=== PATIENT | female | born 1990 | race Caucasian/White ===

== ENCOUNTER → 2017-12-31 | Outpatient (REF) | payer OTHER | LOC: M LAB REF 17:55 | DX: Z12.4 Encounter for screening for malignant neoplasm of cervix (principal) ==

== ENCOUNTER → 2018-02-11 | Outpatient (REF) | payer OTHER | LOC: M LAB REF 17:09 | DX: R30.0 Dysuria (principal) ==

== ENCOUNTER → 2018-06-05 | Outpatient (CLI) | payer OTHER ==
[2018-06-05 13:44] LABS: BASO % 0.5 % (0.0-1.0); EOS # 0.1 10^3/uL (0.0-0.50); EOS % 2.1 % (0.0-3.0); HEMATOCRIT 39.7 % (36.0-47.0); HEMOGLOBIN 13.1 g/dl (12.0-15.5); IMMATURE GRANULOCYTE % 0.2 % (0-3.0); LYMPH # 1.4 10^3/uL (1.5-6.5); LYMPH % 33.3 % (24.0-44.0); MEAN CORPUSCULAR HEMOGLOBIN 30.3 pg (27.0-33.0); MEAN CORPUSCULAR VOLUME 91.7 fl (80.0-96.0); MONO # 0.5 10^3/uL (0.0-0.8); NEUTROPHILS # 2.3 10^3/uL (1.8-7.7); NEUTROPHILS % 52.9 % (36.0-66.0); PLATELET COUNT, AUTOMATED 232 10^3/uL (150-450); RED BLOOD COUNT 4.33 10^6/uL (4.00-5.40); RED CELL DISTRIBUTION WIDTH 12.2 % (11.5-14.5); WHITE BLOOD COUNT 4.3 10^3/uL (4.0-10.0)
[2018-06-05 15:39] LABS: FREE T4 0.74 NG/DL (0.76-1.46)
== END ==
LOC: M SMT 10:40
DX: Z13.29 Encounter for screening for other suspected endocrine disorder (principal); Z13.0 Encounter for screening for diseases of the blood and blood-forming organs and certain disorders involving the immune mechanism
CPT/HCPCS: 84443

== ENCOUNTER → 2019-05-11 | Outpatient (REF) | payer OTHER ==
[2019-05-11 20:33] LABS: CHLAMYDIA DNA AMPLIFICATION NEGATIVE (NEGATIVE); GC DNA AMPLIFICATION NEGATIVE (NEGATIVE)
[2019-05-14 14:07] LABS: HPV HYBRID CAPTURE II Negative (Negative)
== END ==
LOC: M LAB REF 18:36
PROVIDERS: ATTEND Specialist
DX: Z12.4 Encounter for screening for malignant neoplasm of cervix (principal); Z11.3 Encounter for screening for infections with a predominantly sexual mode of transmission
CPT/HCPCS: 87491; 87591; 87624; G0123

== ENCOUNTER → 2019-09-18 | Outpatient (CLI) | payer OTHER ==
[2019-09-18 08:16] LABS: BASO % 0.4 % (0.0-1.0); EOS # 0.1 10^3/uL (0.0-0.5); EOS % 2.3 % (0.0-3.0); HEMATOCRIT 37.3 % (36.0-47.0); HEMOGLOBIN 12.7 g/dl (12.0-15.5); LYMPH # 2.1 10^3/uL (1.5-5.0); LYMPH % 39.1 % (24.0-44.0); MEAN CORPUSCULAR HEMOGLOBIN 30.8 pg (27.0-33.0); MEAN CORPUSCULAR VOLUME 90.5 fl (80.0-96.0); MONO # 0.5 10^3/uL (0.0-0.8); MONO % 9.7 % (0.0-5.0); NEUTROPHILS # 2.5 10^3/uL (1.5-8.5); NEUTROPHILS % 48.3 % (36.0-66.0); PLATELET COUNT, AUTOMATED 256 10^3/uL (150-450); RED BLOOD COUNT 4.12 10^6/uL (4.00-5.40); WHITE BLOOD COUNT 5.2 10^3/uL (4.0-10.0)
[2019-09-18 08:50] LABS: ALBUMIN 4.3 GM/DL (3.2-5.2); ALT/SGPT 30 U/L (12-78); BILIRUBIN,TOTAL 0.6 MG/DL (0.2-1.0); BLOOD UREA NITROGEN 13 MG/DL (7-18); CALCIUM LEVEL 9.7 MG/DL (8.5-10.1); CARBON DIOXIDE LEVEL 28 MEQ/L (21-32); CHLORIDE LEVEL 106 MEQ/L (98-107); CREATININE FOR GFR 0.72 MG/DL (0.55-1.30); FREE T4 0.77 NG/DL (0.76-1.46); GLOMERULAR FILTRATION RATE > 60.0 (>60); GLUCOSE, FASTING 87 MG/DL (70-100); POTASSIUM SERUM 4.2 MEQ/L (3.5-5.1); SODIUM LEVEL 139 MEQ/L (136-145); TOTAL PROTEIN 7.9 GM/DL (6.4-8.2)
== END ==
LOC: M LAB 07:38
PROVIDERS: ATTEND Family Medicine
DX: Z13.79 Encounter for other screening for genetic and chromosomal anomalies (principal)

== ENCOUNTER → 2019-10-01 | Outpatient (CLI) | payer OTHER ==
--- NOTE | 2019-10-01 09:55 | REP ---
Clinical: Infertility. Technique: Transvaginal examination. Findings: Normal anteverted uterus measures 8.1 x 4.0 x 5.2 cm. The endometrial complex demonstrates normal trilaminar appearance and measures 8.3 mm thickness. Small amount of pelvic fluid is appreciated. Right ovary measures 3.9 x 2.4 x 2.2 cm and includes 11.4 mm and 15.8 mm follicles along with approximately 20 sub centimeter follicles measuring between 2.6 and 8.4 mm. Left ovary measures 3.1 x 2.2 x 2.6 cm and includes 10.3 mm, 10.3 mm, and 16.4 mm follicles along with approximately 19 sub centimeter follicles measuring between 2.4 and 8.1 mm Impression: Bilateral ovarian follicles as noted above. Electronically Signed by Guillermo Mckeon MD 10/01/2019 09:46 A
[2019-10-01 10:14] LABS: ESTRADIOL 49.1 PG/ML; LUTEINIZING HORMONE 14.4 mIU/mL; PROGESTERONE 0.29 NG/ML
== END ==
LOC: M LAB 08:42
PROVIDERS: ATTEND Obstetrics & Gynecology Reproductive Endocrinology
DX: E28.9 Ovarian dysfunction, unspecified (principal)

== ENCOUNTER → 2019-10-12 | Outpatient (CLI) | payer OTHER ==
[2019-10-12 09:05] LABS: THYROID STIMULATING HORMONE 1.72 uIU/ML (0.358-3.740)
[2019-10-12 10:18] LABS: PROGESTERONE 33.13 NG/ML
[2019-10-12 10:19] LABS: ESTRADIOL 161.5 PG/ML
== END ==
LOC: M LAB 07:36
PROVIDERS: ATTEND Obstetrics & Gynecology Reproductive Endocrinology
DX: E28.9 Ovarian dysfunction, unspecified (principal)

== ENCOUNTER → 2019-10-19 | Outpatient (CLI) | payer OTHER ==
[2019-10-19 17:06] LABS: HCG, SERUM QUANTITATIVE < 1.0 MIU/ML
[2019-10-19 17:15] LABS: ESTRADIOL 21.1 PG/ML
== END ==
LOC: M LAB 15:55
PROVIDERS: ATTEND Obstetrics & Gynecology Reproductive Endocrinology
DX: E28.9 Ovarian dysfunction, unspecified (principal)

== ENCOUNTER → 2019-11-25 | Outpatient (CLI) | payer OTHER ==
[2019-11-25 07:21] LABS: HCG, SERUM QUANTITATIVE < 1.0 MIU/ML
--- NOTE | 2019-11-25 07:53 | REP ---
Pelvic ultrasound for follicle assessment: The study is performed with endovaginal ultrasound imaging. Right ovary: There are no follicles that are greater than 10 mm. There are 14 follicles that measure 3.5 - 7.8 mm. Right ovary measures 3.5 x 1.71 point 6 cm and is normal size. Left ovary: There are no follicles that are greater than 10 mm. There are 11 follicles that measure 2.9 - 7.1 mm. The left ovary measures 2.9 x 2.0 x 2.2 cm. And is normal size. The uterus is anteverted and normal size measuring 9.2 x 3.8 x 5.2 cm. The endometrial stripe measures 3.5 mm and has a trilaminar appearance. There is a trace of free fluid in the cul-de-sac. Electronically Signed by Sin Horn MD 11/25/2019 07:45 A
[2019-11-25 09:50] LABS: PROGESTERONE 0.45 NG/ML
[2019-11-25 09:51] LABS: ESTRADIOL 30.7 PG/ML; FOLLICLE STIMULATING HORMONE 5.3 mIU/mL; LUTEINIZING HORMONE 5.4 mIU/mL
== END ==
LOC: M LAB 06:21
PROVIDERS: ATTEND Obstetrics & Gynecology Reproductive Endocrinology
DX: N83.01 Follicular cyst of right ovary (principal); N83.02 Follicular cyst of left ovary; N85.5 Inversion of uterus

== ENCOUNTER → 2019-12-02 | Outpatient (CLI) | payer OTHER ==
--- NOTE | 2019-12-02 08:00 | REPVR ---
PROCEDURE INFORMATION: Exam: US Pelvis, Transvaginal Exam date and time: 12/02/2019 6:49 AM Age: 29 years old Clinical indication: Screening exam; Follicle study; Additional info: Ovarian dysfunction TECHNIQUE: Imaging protocol: Real-time transvaginal pelvic ultrasound with image documentation. Transvaginal imaging was used for better evaluation of the endometrium and adnexa. COMPARISON: Transvaginal NON- US 11/25/2019 7:26 AM FINDINGS: Uterus/cervix: Measures 8.7 cm long by 3.9 cm AP by 4.6 cm transversely. Homogeneous echotexture. Endometrium measures 0.5 cm AP which corresponds with the proliferative phase of the menstrual cycle. No endometrial fluid. Right adnexa: Right ovary measures 3.9 cm x 3 cm by 3.5 cm. Normal echotexture. There are 12 follicles in the range of 0.23-0.85 cm. There are 3 follicles that measure greater than 1 cm (largest measures 1.3 cm x 1.4 cm). Left adnexa: Left ovary measures 2.6 cm x 4.2 cm x 3 cm. Normal echotexture.There are 12 follicles in the range of 0.39-0.87. There are two follicles that measure greater than 1 cm (largest measures 1.1 cm x 0.9 cm). Free fluid: None. IMPRESSION: Polycystic ovaries, as described. Electronically signed by: Indu Kline On 12/02/2019 08:00:29 AM
[2019-12-02 12:15] LABS: ESTRADIOL 46.8 PG/ML; LUTEINIZING HORMONE 8.9 mIU/mL; PROGESTERONE 0.21 NG/ML
== END ==
LOC: M RAD 06:09
PROVIDERS: ATTEND Obstetrics & Gynecology Reproductive Endocrinology
DX: E28.9 Ovarian dysfunction, unspecified (principal)

== ENCOUNTER → 2019-12-04 | Outpatient (CLI) | payer OTHER ==
--- NOTE | 2019-12-04 09:10 | REP ---
Ultrasound, endovaginal imaging for ovarian follicle analysis: Right ovary: The right ovary measures 3.4-0.3 x 2.7 cm and is normal size. There are three follicles greater than 10 millimeters as follows: 15 x 12 mm, 13 x 14 mm and 12 x 9 mm. In addition there are seven follicles measuring two - 5 mm. Left ovary: Left ovary measures 3.6 x 2.4 x 2.9 cm and is normal size. There are three follicles greater than 10 mm as follows: 16 x 10 mm, 10 x 7 mm and 11 x 6 mm. Additionally, there are 16 follicles measuring two - 9 mm. The uterus is anteverted and normal size measuring 9.6 x 4.2 x 4.5 cm. The endometrium is not thickened measuring 6.7 mm. The endometrium has a trilaminar appearance. Electronically Signed by Sin Horn MD 12/04/2019 09:00 A
[2019-12-04 11:25] LABS: ESTRADIOL 122.1 PG/ML; LUTEINIZING HORMONE 4.7 mIU/mL; PROGESTERONE 0.21 NG/ML
== END ==
LOC: M RAD 08:28
PROVIDERS: ATTEND Obstetrics & Gynecology Reproductive Endocrinology
DX: E28.9 Ovarian dysfunction, unspecified (principal)

== ENCOUNTER → 2019-12-07 | Outpatient (CLI) | payer OTHER ==
[2019-12-07 12:05] LABS: LUTEINIZING HORMONE 31.6 mIU/mL; PROGESTERONE 1.45 NG/ML
--- NOTE | 2019-12-07 13:52 | REP ---
Clinical: Infertility. Technique: Transvaginal examination. Comparison: 12/04/2019. Findings: Anteverted uterus measures 9.7 x 4.2 x 4.7 cm. Endometrial complex measures 8 mm thickness. No endocervical or free fluid noted. Right ovary measures 4.1 x 2.8 x 3.6 cm and includes 20 x 12, 22 x 21, and 10 x 7 mm follicles along with four sub centimeter follicles measuring between 4 and 7 mm. Left ovary measures 3.5 x 1.9 x 2.8 cm and includes 18 x 10 mm follicle along with 11 sub centimeter follicles measuring between 2 and 5 mm. Impression: Follicular study as above. Electronically Signed by Guillermo Mckeon MD 12/07/2019 01:44 P
== END ==
LOC: M RAD 06:01
PROVIDERS: ATTEND Obstetrics & Gynecology Reproductive Endocrinology
DX: E28.9 Ovarian dysfunction, unspecified (principal)

== ENCOUNTER → 2019-12-15 | Outpatient (CLI) | payer OTHER ==
[2019-12-15 08:34] LABS: ESTRADIOL 225.6 PG/ML; PROGESTERONE 50.7 NG/ML
== END ==
LOC: M LAB 07:14
PROVIDERS: ATTEND Obstetrics & Gynecology Reproductive Endocrinology
DX: E28.9 Ovarian dysfunction, unspecified (principal)

== ENCOUNTER → 2019-12-22 | Outpatient (CLI) | payer OTHER ==
[2019-12-22 08:29] LABS: HCG, SERUM QUANTITATIVE < 1.0 MIU/ML
[2019-12-22 09:57] LABS: PROGESTERONE 7.97 NG/ML
== END ==
LOC: M LAB 07:09
PROVIDERS: ATTEND Obstetrics & Gynecology Reproductive Endocrinology
DX: Z32.00 Encounter for pregnancy test, result unknown (principal)

== ENCOUNTER → 2019-12-28 | Outpatient (CLI) | payer OTHER ==
--- NOTE | 2019-12-28 07:22 | REPVR ---
PROCEDURE INFORMATION: Exam: US Pelvis, Transvaginal Exam date and time: 12/28/2019 6:45 AM Age: 29 years old Clinical indication: Screening exam; Follicle study; Additional info: Infertility TECHNIQUE: Imaging protocol: Real-time transvaginal pelvic ultrasound with image documentation. Transvaginal imaging was used for better evaluation of the endometrium and adnexa. COMPARISON: Transvaginal NON- US 12/07/2019 1:27 PM FINDINGS: Uterus/cervix: The uterus measures 9.1 x 3.8 x 5.2 cm. It is homogeneous in echotexture, without demonstrated lesion. The endometrium measures 6.4 mm in thickness. Right adnexa: The right ovary measures 3.8 x 2.1 x 2.5 cm. It contains 13 follicles measuring between 3.8 and 9.2 mm. Left adnexa: The left ovary measures 2.7 x 4.2 x 2.4 cm. It contains 7 follicles measuring between 3.2 and 10.0 mm. Free fluid: None. IMPRESSION: Multiple bilateral ovarian follicles as described. Electronically signed by: Vikash Myers On 12/28/2019 07:21:55 AM
[2019-12-28 07:55] LABS: HCG, SERUM QUANTITATIVE < 1.0 MIU/ML
[2019-12-28 09:28] LABS: LUTEINIZING HORMONE 5.3 mIU/mL; PROGESTERONE 0.37 NG/ML
[2019-12-28 09:29] LABS: ESTRADIOL 49.2 PG/ML
== END ==
LOC: M RAD 06:24
PROVIDERS: ATTEND Obstetrics & Gynecology Reproductive Endocrinology
DX: E28.9 Ovarian dysfunction, unspecified (principal)

== ENCOUNTER → 2020-01-04 | Outpatient (CLI) | payer OTHER ==
[2020-01-04 09:34] LABS: LUTEINIZING HORMONE 5.9 mIU/mL; PROGESTERONE 0.23 NG/ML
--- NOTE | 2020-01-04 12:58 | REP ---
Transvaginal pelvic sonography: History: Infertility study. Findings: Uterine dimensions are normal measured at 9.4 x 3.9 x 5.2 cm. Endometrial stripe is 0.6 cm thick. No focal uterine mass is seen. No free fluid. The overall dimensions of the right ovary today are 4.3 x 2.3 x 4.0 cm. The right ovary contains seven follicles measuring greater than a centimeter as follows: 1.1 x 1.2, 1.3 x 0.9, 1.4 x 0.8, 1.3 x 0.6, 1.2 x 0.8, and 1.2 x 0.7 cm. In addition, the right ovary contains 16 follicles ranging in size from 0.2-0.9 cm. The overall dimensions of the left ovary today are 3.8 x 2.3 x 3.0 cm. There are two follicle over a centimeter measured as follows: 1.2 x 1.0 and 1.4 x 0.8 cm. In addition, the left ovary contains 19 follicles measuring between 0.3 and 0.9 cm. Impression: Ovarian follicle study as above. Electronically Signed by Pedro Simpson MD 01/04/2020 12:49 P
== END ==
LOC: M RAD 08:04
PROVIDERS: ATTEND Obstetrics & Gynecology Reproductive Endocrinology
DX: E28.9 Ovarian dysfunction, unspecified (principal)

== ENCOUNTER → 2020-01-06 | Outpatient (CLI) | payer OTHER ==
--- NOTE | 2020-01-06 13:10 | REP ---
Pelvic ultrasound, endovaginal imaging for ovarian follicle assessment: Right ovary: The right ovary measures 3 x 8-0.43 point centimeters and is normal size. There are four follicles greater than 10 mm as follows: 24 x 16 ml, 13 x 6 mm, 10 x 5 mm, 11 x 6 mm. Additionally there are nine follicles measuring 5 - 9 mm. Left ovary: The left ovary measures 3.6 x 3 point 4-5 cm and is normal size. There are two follicles greater than 10 mm as follows: 12 x 7 mm, 16 x 11 mm. Additionally there are eight follicles measuring 3 - 8 mm. The uterus is anteverted and normal size measuring 9.9 x 4.1 x 4.9 cm. The endometrium is not thickened measuring 10.2 ml. There is a trace of free fluid in the endometrial canal. There are a few tiny echogenic foci along the margins of the endometrium , likely endometrial calcifications. Electronically Signed by Sin Horn MD 01/06/2020 01:02 P
== END ==
LOC: M RAD 09:41
PROVIDERS: ATTEND Obstetrics & Gynecology Reproductive Endocrinology
DX: E28.9 Ovarian dysfunction, unspecified (principal)

== ENCOUNTER → 2020-01-06 | Outpatient (CLI) | payer OTHER ==
[2020-01-06 11:42] LABS: ESTRADIOL 228.1 PG/ML; LUTEINIZING HORMONE 8.4 mIU/mL; PROGESTERONE 0.3 NG/ML
== END ==
LOC: M RAD 09:38
PROVIDERS: ATTEND Obstetrics & Gynecology Reproductive Endocrinology
DX: E28.9 Ovarian dysfunction, unspecified (principal)

== ENCOUNTER → 2020-01-15 | Outpatient (CLI) | payer OTHER ==
[2020-01-15 11:24] LABS: PROGESTERONE 50.17 NG/ML
== END ==
LOC: M LAB 10:22
PROVIDERS: ATTEND Obstetrics & Gynecology Reproductive Endocrinology
DX: E28.9 Ovarian dysfunction, unspecified (principal)

== ENCOUNTER → 2020-01-22 | Outpatient (CLI) | payer OTHER ==
[2020-01-22 11:08] LABS: HCG, SERUM QUANTITATIVE < 1.0 MIU/ML
[2020-01-22 11:45] LABS: PROGESTERONE 8.06 NG/ML
== END ==
LOC: M LAB 10:23
PROVIDERS: ATTEND Obstetrics & Gynecology Reproductive Endocrinology
DX: Z32.00 Encounter for pregnancy test, result unknown (principal)

== ENCOUNTER → 2020-02-23 | Outpatient (CLI) | payer OTHER | LOC: M LABSMTC 13:19 | PROVIDERS: ATTEND Family Medicine | DX: Z11.59 Encounter for screening for other viral diseases (principal) ==

== ENCOUNTER → 2020-05-17 | Outpatient (CLI) | payer OTHER ==
[2020-05-17 10:26] LABS: ESTRADIOL 264.1 PG/ML; LUTEINIZING HORMONE 5.2 mIU/mL; PROGESTERONE 0.3 NG/ML
== END ==
LOC: M LAB 06:10
PROVIDERS: ATTEND Obstetrics & Gynecology Reproductive Endocrinology
DX: N97.8 Female infertility of other origin (principal)

== ENCOUNTER → 2020-05-18 | Outpatient (CLI) | payer OTHER ==
[2020-05-18 10:42] LABS: ESTRADIOL 395.5 PG/ML; LUTEINIZING HORMONE 31.2 mIU/mL; PROGESTERONE 1.05 NG/ML
== END ==
LOC: M LAB 08:19
PROVIDERS: ATTEND Obstetrics & Gynecology Reproductive Endocrinology
DX: E28.9 Ovarian dysfunction, unspecified (principal)

== ENCOUNTER → 2020-05-26 | Outpatient (CLI) | payer OTHER ==
[2020-07-07 11:49] LABS: ESTRADIOL 218.3 PG/ML; PROGESTERONE 59.06 NG/ML
== END ==
LOC: M LAB 10:45
PROVIDERS: ATTEND Obstetrics & Gynecology Reproductive Endocrinology
DX: E28.9 Ovarian dysfunction, unspecified (principal)

== ENCOUNTER → 2020-06-02 | Outpatient (CLI) | payer OTHER ==
[2020-07-30 15:48] LABS: HCG, SERUM QUANTITATIVE < 1.0 MIU/ML; PROGESTERONE 3.43 NG/ML
== END ==
LOC: M LAB 08:42
PROVIDERS: ATTEND Obstetrics & Gynecology Reproductive Endocrinology
DX: Z32.00 Encounter for pregnancy test, result unknown (principal)

== ENCOUNTER 2020-06-08 11:00 | Day surgery (SDC) | payer OTHER ==
[~2020-06-08 11:00] MED LIST: KETOROLAC 60MG 2ML VIAL ONE; LIDOCAINE 2% 100MG/5ML SDV (FOR ANES.) ONE; MIDAZOLAM INJ 2MG/2ML VIAL (J2250 PER 1MG) ONE; ONDANSETRON 4MG/2ML VIAL ONE; PHENYLephrine HCL 500 MCG/5 ML (100MCG/ML) SYRINGE (J2370) ONE; ROCURONIUM BROMIDE 50 MG/5 ML VIAL ONE; SUGAMMADEX SODIUM 500 MG/5 ML VIAL (BRIDION) ONE; dexameTHASONE 4 MG/ML 1ML VIAL (J1100 PER 1MG) ONE; ePHEDrine SULFATE 25 MG/5 ML(5MG/ML) SYRINGE ONE; fentaNYL 250 MCG/5 ML INJECTION (J3010) ONE; propofoL 200 MG/20 ML VIAL ONE
[2020-06-08] MEDS ORDERED: SCOPOLAMINE 1MG TRANSDERMAL PATCH ONE (11:10)
[2020-06-08] MEDS ORDERED: BUPIVACAINE HCL 0.25% 10ML VIAL ONE (11:10)
[2020-06-08] MEDS ORDERED: ACETAMINOPHEN 1000MG 100ML IV BTL (OFIRMEV) (J0131 PER 10MG) ONE (11:44)
[2020-06-08] MEDS ORDERED: oxyCODONE 5MG TAB As Ordered ONE (13:04)
[2020-06-08] MEDS ORDERED: oxyCODONE 5MG TAB ONE (13:04)
[2020-07-31 01:00] LABS: HEMATOCRIT 39.7 % (36.0-47.0); HEMOGLOBIN 13.3 g/dl (12.0-15.5); MEAN CORPUSCULAR HEMOGLOBIN 30.6 pg (27.0-33.0); MEAN CORPUSCULAR HGB CONC 33.5 g/dl (32.0-36.5); MEAN CORPUSCULAR VOLUME 91.5 fl (80.0-96.0); PLATELET COUNT, AUTOMATED 255 10^3/uL (150-450); RED BLOOD COUNT 4.34 10^6/uL (4.00-5.40); WHITE BLOOD COUNT 3.8 10^3/uL (4.0-10.0)
--- NOTE | 2020-08-05 10:26 | RO ---
DATE OF OPERATION: 06/08/2020 PREOPERATIVE DIAGNOSIS: Pelvic pain and menorrhagia. POSTOPERATIVE DIAGNOSES: Pelvic pain and menorrhagia. Endometriosis. PROCEDURES: Operative laparoscopy with ablation of endometriosis, hysteroscopy, dilation and curettage (D&C). SURGEON: Amos Rios MD ANESTHESIA: General endotracheal. ESTIMATED BLOOD LOSS: 10 mL. URINE OUTPUT: 20 mL. FINDINGS: Stage I endometriosis with a total of three implants noted; two implants in the posterior cul-de-sac and one implant on the left anterior lower uterine segment. Normal ovaries and fallopian tubes. Normal uterus. Normal upper abdomen including liver, gallbladder, stomach, and intestines. DESCRIPTION OF PROCEDURE: The patient was taken to the operating room where general endotracheal anesthesia was induced. She was prepped and draped in a sterile fashion in the dorsolithotomy position. The bladder was entered and a Hulka tenaculum was placed as a manipulation. A periumbilical incision was made with the scalpel. A Veress needle was placed through the incision while tenting up on the skin of the abdomen. Intraabdominal location of the Veress needle was assessed using a saline-filled syringe. A pneumoperitoneum was created. The Veress needle was removed. A 5-mm trocar using VisiPort was inserted through this incision. Two 5-mm suprapubic ports were placed under direct visualization. A 5-mm scope with camera was used to visualize the abdomen and pelvis with findings as noted above. Blunt graspers were used to survey pelvic structures. Monopolar Endo Christa were used to coagulate three endometriosis implants that were noted. There was no residual endometriosis observed. The pneumoperitoneum was released. All instruments were removed. Skin was closed with 4-0 Monocryl subcuticular sutures. Sponge, instrument, and needle counts were correct. Attention was turned to the vagina. A speculum was placed. The anterior lip of the cervix was grasped with a tenaculum. The cervix was dilated with tapered dilators. Diagnostic hysteroscope using normal saline as the distention media was placed through the internal os. Visualization of the endometrial cavity revealed the findings noted above. Hysteroscope was removed. Sharp curettage was performed. Specimen of endometrial curetting was sent to pathology. Findings at the time of hysteroscopy were normal. Endometrial cavity with normal tubal ostium bilaterally. All instruments were removed. Sponge and instrument counts were again correct. Patient was extubated and went to the recovery room in stable condition. EMETERIO
== END 2020-06-08 14:55 | disposition home or self-care (01) ==
LOC: M SDC 11:00
PROVIDERS: ATTEND Specialist
DX: N92.4 Excessive bleeding in the premenopausal period (principal); N80.3 Endometriosis of pelvic peritoneum; R10.2 Pelvic and perineal pain; Z88.0 Allergy status to penicillin
CPT/HCPCS: 58558; 58662; 84703; 85027; 88305; J0131; J1100; J1885; J2250; J2370; J2405; J3010